=== PATIENT | male | born 1990 | race Caucasian/White ===

== ENCOUNTER 2017-01-22 23:47 | Observation (INO) | payer BC ==
[2017-01-23] MEDS ORDERED: Alum Hydrox/Mag Hydrox/Simeth 15 ML, Lidocaine 2% 5 ML PO ONE ×2 (00:14)
[2017-01-23] MEDS ORDERED: Pantoprazole 40 MG Vial IVPUSH ONE (00:15)
[2017-01-23] MEDS ORDERED: Nitroglycerin 2% Oint 1 GM UD Packet TOP ONE (00:16)
[2017-01-23] MEDS ORDERED: LORazepam 2 MG/ML MDV IVPUSH ONE (00:16)
[2017-01-23] MEDS ORDERED: Sucralfate Suspension 1 GM/10 ML Cup PO STA (00:17)
[2017-01-23] MEDS ORDERED: Acetaminophen 325 MG Tab PO PRN (00:18)
[2017-01-23] MEDS ORDERED: Sodium Chloride 0.9% 2.5 ML Syringe FLUSH PRN (00:18)
[2017-01-23] MEDS ORDERED: Sodium Chloride 0.9% 10 ML Syringe FLUSH PRN (00:18)
--- NOTE | 2017-01-23 00:22 | EDM.PDOC ---
ED HISTORY OF PRESENT ILLNESS - General Chief Complaint: Respiratory Problem Stated Complaint: PT HAS DIFFICULTY BREATHING Time Seen by Provider: 01/23/17 00:15 Source of Information: Reports: Patient, Family, RN - History of Present Illness INITIAL COMMENTS - FREE TEXT/NARRATIVE: He presents to the emergency department today complaining of chest pain. He states it's been present for about 2 weeks. It comes and goes. He states today has been present since 9 AM. The pain is associated with a feeling of dyspnea. He also has associated feeling of acid indigestion. - Related Data Allergies/ADRs: Allergies Allergy/AdvReac Type Severity Reaction Status Date / Time No Known Allergies Allergy Verified 01/22/17 23:51 Home Meds: Home Meds ClonazePAM [KlonoPIN] 0.5 tab PO DAILY 01/22/17 [History] Past Medical History HEENT History: Reports: None Cardiovascular History: Reports: None Respiratory History: Reports: None Gastrointestinal History: Reports: None Genitourinary History: Reports: None Musculoskeletal History: Reports: None Neurological History: Reports: None Psychiatric History: Reports: Anxiety Endocrine/Metabolic History: Reports: None Hematologic History: Reports: None Immunologic History: Reports: None Oncologic (Cancer) History: Reports: None Dermatologic History: Reports: None - Infectious Disease History Infectious Disease History: Reports: None - Past Surgical History Head Surgeries/Procedures: Reports: None HEENT Surgical History: Reports: None Social & Family History - Tobacco Use Smoking Status *Q: Never Smoker - Caffeine Use Caffeine Use: Reports: None - Recreational Drug Use Recreational Drug Use: No ED ROS GENERAL - Review of Systems Review Of Systems: See Below Constitutional: Denies: fever, chills Respiratory: Reports: shortness of breath. Denies: cough, sputum Cardiovascular: Reports: Chest pain GI/Abdominal: Denies: Abdominal pain : Denies: dysuria Free text/narrative/comment: He complains of anxiety. He states he has medicine at home to take for anxiety. ED EXAM, GENERAL - Physical Exam Exam: See Below Free Text/Narrative:: He is alert in no acute distress no chest wall tenderness no abnormal tenderness. Normal mentation. Lungs clear to auscultation. Heart regular rate and rhythm without murmur. No ankle edema. No lateralizing motor deficit noted. Electrocardiogram shows sinus rhythm with changes of early repolarization noted in V2 V3 V4 and V5. He is somewhat anxious in appearance. Course - Vital Signs Last Recorded V/S: Last Vital Signs Temp 97.1 F 01/22/17 23:51 Pulse 89 01/23/17 00:45 Resp 16 01/23/17 00:45 BP 112/70 01/23/17 00:45 Pulse Ox 98 01/23/17 00:45 - Orders/Labs/Meds Orders: Active Orders 24 hr Category Date Time Status Cardiac Monitoring [RC] . DIRECTED Care 01/23/17 00:16 Active EKG Documentation Completion [RC] STAT Care 01/23/17 23:56 Active Chest 2V [CR] Stat Exams 01/23/17 00:16 Taken CULTURE STREP A CONFIRMATION [] Stat Lab 01/23/17 00:45 Results STREP SCRN A RAPID W CULT CONF [] Stat Lab 01/23/17 00:45 Results Acetaminophen [Tylenol] Med 01/23/17 00:18 Active 650 mg PO Q4H PRN Nitroglycerin [Nitrostat] Med 01/23/17 00:30 Active 0.4 mg SL ONETIME Sodium Chloride 0.9% [Saline Flush] Med 01/23/17 00:18 Active 10 ml FLUSH ASDIRECTED PRN Sodium Chloride 0.9% [Saline Flush] Med 01/23/17 00:18 Active 2.5 ml FLUSH ASDIRECTED PRN Saline Lock Insert [OM.PC] Stat Oth 01/23/17 00:18 Ordered Medication Orders Acetaminophen (Tylenol) 650 mg PO Q4H PRN PRN Reason: Pain Last Admin: 01/23/17 00:32 Dose: 650 mg Nitroglycerin (Nitrostat) 0.4 mg SL ONETIME KAROL Last Admin: 01/23/17 00:32 Dose: 0.4 mg Sodium Chloride (Saline Flush) 10 ml FLUSH ASDIRECTED PRN PRN Reason: Keep Vein Open Last Admin: 01/23/17 00:46 Dose: 10 ml Sodium Chloride (Saline Flush) 2.5 ml FLUSH ASDIRECTED PRN PRN Reason: Keep Vein Open Last Admin: 01/23/17 00:43 Dose: 2.5 ml Labs: Laboratory Tests 01/23/17 01/23/17 01/23/17 Range/Units 00:20 00:20 00:20 WBC 7.57 (4.0-11.0) K/uL RBC 5.01 (4.50-5.90) M/uL Hgb 15.6 (13.0-17.0) g/dL Hct 45.7 (38.0-50.0) % MCV 91.2 (80.0-98.0) fL MCH 31.1 (27.0-32.0) pg MCHC 34.1 (31.0-37.0) g/dL RDW Std Deviation 43.8 (28.0-62.0) fl RDW Coeff of [place] 13 (11.0-15.0) % Plt Count 180 (150-400) K/uL MPV 10.40 (7.40-12.00) fL Neut % (Auto) 43.5 L (48.0-80.0) % Lymph % (Auto) 41.6 H (16.0-40.0) % [place] % (Auto) 10.8 (0.0-15.0) % Eos % (Auto) 3.6 (0.0-7.0) % Baso % (Auto) 0.5 (0.0-1.5) % Neut # 3.3 (1.4-5.7) K/uL Lymph # 3.2 H (0.6-2.4) K/uL [place] # 0.8 (0.0-0.8) K/uL Eos # 0.3 (0.0-0.7) K/uL Baso # 0.0 (0.0-0.1) K/uL Nucleated RBC % 0.0 /100WBC Nucleated RBCs # 0 K/uL D-Dimer, Quantitative 0.21 (0.0-0.52) mg/LFEU Sodium 139 (136-146) mmol/L Potassium 3.8 (3.5-5.1) mmol/L Chloride 104 (98-110) mmol/L Carbon Dioxide 28 (21-31) mmol/L BUN 18 (6.0-23.0) mg/dL Creatinine 1.1 (0.6-1.5) mg/dL Est Cr Clr Drug Dosing 103.23 mL/min Estimated GFR (MDRD) > 60.0 ml/min Glucose 89 (60-110) mg/dL Calcium 8.8 (8.8-10.8) mg/dL Total Bilirubin 0.5 (0.1-1.5) mg/dL AST 19 (5-40) IU/L ALT 12 (8-54) IU/L Alkaline Phosphatase 75 (40-150) Troponin I (0.0-0.29) NG/ML Total Protein 7.0 (6.0-8.0) g/dL Albumin 4.2 (3.5-5.0) g/dL Globulin 2.8 (2.0-3.5) g/dL Albumin/Globulin Ratio 1.5 (1.3-2.8) 01/23/17 Range/Units 00:20 WBC (4.0-11.0) K/uL RBC (4.50-5.90) M/uL Hgb (13.0-17.0) g/dL Hct (38.0-50.0) % MCV (80.0-98.0) fL MCH (27.0-32.0) pg MCHC (31.0-37.0) g/dL RDW Std Deviation (28.0-62.0) fl RDW Coeff of [place] (11.0-15.0) % Plt Count (150-400) K/uL MPV (7.40-12.00) fL Neut % (Auto) (48.0-80.0) % Lymph % (Auto) (16.0-40.0) % [place] % (Auto) (0.0-15.0) % Eos % (Auto) (0.0-7.0) % Baso % (Auto) (0.0-1.5) % Neut # (1.4-5.7) K/uL Lymph # (0.6-2.4) K/uL [place] # (0.0-0.8) K/uL Eos # (0.0-0.7) K/uL Baso # (0.0-0.1) K/uL Nucleated RBC % /100WBC Nucleated RBCs # K/uL D-Dimer, Quantitative (0.0-0.52) mg/LFEU Sodium (136-146) mmol/L Potassium (3.5-5.1) mmol/L Chloride (98-110) mmol/L Carbon Dioxide (21-31) mmol/L BUN (6.0-23.0) mg/dL Creatinine (0.6-1.5) mg/dL Est Cr Clr Drug Dosing mL/min Estimated GFR (MDRD) ml/min Glucose (60-110) mg/dL Calcium (8.8-10.8) mg/dL Total Bilirubin (0.1-1.5) mg/dL AST (5-40) IU/L ALT (8-54) IU/L Alkaline Phosphatase (40-150) Troponin I < 0.10 (0.0-0.29) NG/ML Total Protein (6.0-8.0) g/dL Albumin (3.5-5.0) g/dL Globulin (2.0-3.5) g/dL Albumin/Globulin Ratio (1.3-2.8) Meds: Medications Generic Name Dose Route Start Last Admin Trade Name Benq PRN Reason Stop Dose Admin Acetaminophen 650 mg 01/23/17 00:18 01/23/17 00:32 Tylenol PO 650 mg Q4H PRN Administration Pain Nitroglycerin 0.4 mg 01/23/17 00:30 01/23/17 00:32 Nitrostat SL 0.4 mg ONETIME KAROL Administration Sodium Chloride 10 ml 01/23/17 00:18 01/23/17 00:46 Saline Flush FLUSH 10 ml ASDIRECTED PRN Administration Keep Vein Open Sodium Chloride 2.5 ml 01/23/17 00:18 01/23/17 00:43 Saline Flush FLUSH 2.5 ml ASDIRECTED PRN Administration Keep Vein Open Discontinued Medications Generic Name Dose Route Start Last Admin Trade Name Crista PRN Reason Stop Dose Admin Al Hydroxide/Mg Hydroxide 15 0 ml 01/23/17 00:14 01/23/17 00:35 ml/ Lidocaine HCl 5 ml PO 01/23/17 00:15 15 each ONETIME ONE Administration Lorazepam 1 mg 01/23/17 00:16 01/23/17 00:37 Ativan IVPUSH 01/23/17 00:17 1 mg ONETIME ONE Administration Nitroglycerin 1 gm 01/23/17 00:16 01/23/17 00:39 Nitro-Bid 2% TOP 01/23/17 00:17 1 gm ONETIME ONE Administration Pantoprazole Sodium 40 mg 01/23/17 00:15 01/23/17 00:33 Protonix Iv IVPUSH 01/23/17 00:16 40 mg .BOLUS ONE Administration Sucralfate 1 gm 01/23/17 00:17 Carafate PO 01/23/17 00:18 NOW STA - Re-Assessments/Exams Free Text/Narrative Re-Assessment/Exam: 01/23/17 01:41 He seems to feel better after emergency room treatment. I discussed in hospital observation for further cardiac evaluation. I advised that I think the most likely etiology of his chest pain is related to anxiety and acid reflux disease. Departure - Departure Time of Disposition: 01:42 Disposition: Refer to Observation Condition: good Clinical Impression: Chest pain, Anxiety, GERD (gastroesophageal reflux disease) Referrals: PCP,None [Primary Care Provider] - Forms: ED Department Discharge Additional Instructions: Will admit to observation - My Orders Last 24 Hours: My Active Orders 01/23/17 00:16 Cardiac Monitoring [RC] . DIRECTED Chest 2V [CR] Stat 01/23/17 00:18 Acetaminophen [Tylenol] 650 mg PO Q4H PRN Sodium Chloride 0.9% [Saline Flush] 10 ml FLUSH ASDIRECTED PRN Sodium Chloride 0.9% [Saline Flush] 2.5 ml FLUSH ASDIRECTED PRN Saline Lock Insert [OM.PC] Stat 01/23/17 00:30 Nitroglycerin [Nitrostat] 0.4 mg SL ONETIME 01/23/17 00:45 CULTURE STREP A CONFIRMATION [RM] Stat STREP SCRN A RAPID W CULT CONF [RM] Stat 01/23/17 23:56 EKG Documentation Completion [RC] STAT - Assessment/Plan Last 24 Hours: My Active Orders 01/23/17 00:16 Cardiac Monitoring [RC] . DIRECTED Chest 2V [CR] Stat 01/23/17 00:18 Acetaminophen [Tylenol] 650 mg PO Q4H PRN Sodium Chloride 0.9% [Saline Flush] 10 ml FLUSH ASDIRECTED PRN Sodium Chloride 0.9% [Saline Flush] 2.5 ml FLUSH ASDIRECTED PRN Saline Lock Insert [OM.PC] Stat 01/23/17 00:30 Nitroglycerin [Nitrostat] 0.4 mg SL ONETIME 01/23/17 00:45 CULTURE STREP A CONFIRMATION [RM] Stat STREP SCRN A RAPID W CULT CONF [RM] Stat 01/23/17 23:56 EKG Documentation Completion [RC] STAT
[2017-01-23] MEDS ORDERED: Nitroglycerin 0.4 MG Tab.SL SL SCH (00:30)
[2017-01-23 00:57] LABS: CHLORIDE,CL 104 mmol/L (98-110); SODIUM,NA 139 mmol/L (136-146)
[2017-01-23] MEDS ORDERED: Bisacodyl 5 MG Tab PO PRN (01:44)
[2017-01-23] MEDS ORDERED: Ondansetron 4 MG Tab.DIS PO PRN (01:44)
[2017-01-23] MEDS ORDERED: Temazepam 15 MG Cap PO PRN (01:44)
[2017-01-23] MEDS ORDERED: Morphine 10 MG/ML Syringe IVPUSH PRN (01:44)
[2017-01-23] MEDS ORDERED: Nitroglycerin 2% Oint 1 GM UD Packet TOP SCH ×2 (01:45→06:00)
[2017-01-23] MEDS ORDERED: LORazepam 1 MG Tab PO PRN (01:48)
[2017-01-23] MEDS ORDERED: Aspirin 81 MG Tab.Chew PO ONE (01:50)
[2017-01-23] MEDS: Sucralfate Suspension 1 GM/10 ML Cup PO SCH ×4 (02:28→12:04)
[2017-01-23] MEDS ORDERED: Flu Vaccine 2016-17(36Mos+)/PF 60 MCG/0.5 ML Syringe IM ONE (02:58)
[2017-01-23] MEDS ORDERED: Pantoprazole 40 MG Tab.CR PO SCH (07:30)
[2017-01-23] MEDS ORDERED: Aspirin 81 MG Tab.Chew PO SCH (09:00)
--- NOTE | 2017-01-23 09:07 | PCM.HP ---
Addendum entered and electronically signed by Blanca Uriarte MD 01/23/17 12:22 : Discussed with Dr. Payton. He is low risk for ACS and he does not require asa or nitrostat. Addendum entered and electronically signed by Blanca Uriarte MD 01/23/17 12:04 : DISCHARGE SUMMARY patient was ruled our ACS. He does not have chest pain. He is to follow up with Dr. Delaney in cardiology and Dr. Uriarte at the clinic. He is discharged on ASA, protonix, nitrostat and paxil for anxiety. Original Note: <Blanca Uriarte - Last Filed: 01/23/17 10:32> H&P History of Present Illness - General Date of Service: 01/23/17 - History of Present Illness Initial Comments - Free Text/Narative: 26 yo male with intermittent chest pain x 3 weeks. He describes the pain as pressure often worsenend by food. Last night the chest pain woke him from sleep where he felt pressure like sensation with nausea, sweating and palpitations. His drove him to the ED. He does have severe anxiety where he has been taking Klonapin 2 mg for ten years. He does not have history of HTN, DM, Hyperlipidemia or CHF. He does have history of GERD occasionally where he does not take any medications. He used to smoke but had quit, drink alchol or use recreational drugs. He works in the [employer] field. Chest Pain Score (Numeric/FACES): 6 Headache Pain Score (Numeric/FACES): 6 - Related Data Allergies/Adverse Reactions: Allergies Allergy/AdvReac Type Severity Reaction Status Date / Time No Known Allergies Allergy Verified 01/22/17 23:51 Home Medications: Home Meds ClonazePAM [KlonoPIN] 0.25 tab PO DAILY 01/22/17 [History] PARoxetine [Paxil] 20 mg PO DAILY #30 tablet 01/23/17 [Rx] Pantoprazole [Protonix] 40 mg PO ACBREAKFAST #30 tab.cr 01/23/17 [Rx] clonazePAM [Klonopin] 0.5 mg PO PCDINNER 01/23/17 [History] Past Medical History HEENT History: Reports: None Cardiovascular History: Reports: None Respiratory History: Reports: None Gastrointestinal History: Reports: None Genitourinary History: Reports: None Musculoskeletal History: Reports: None Neurological History: Reports: None Psychiatric History: Reports: Anxiety Endocrine/Metabolic History: Reports: None Hematologic History: Reports: None Immunologic History: Reports: None Oncologic (Cancer) History: Reports: None Dermatologic History: Reports: None - Infectious Disease History Infectious Disease History: Reports: Chicken pox - Past Surgical History Head Surgeries/Procedures: Reports: None HEENT Surgical History: Reports: None Social & Family History - Family History Family Medical History: Noncontributory - Tobacco Use Smoking Status *Q: Former Smoker Years of Tobacco use: 1 Tobacco Use Comment: quit smoking 8-9 years ago Second Hand Smoke Exposure: No - Caffeine Use Caffeine Use: Reports: None - Recreational Drug Use Recreational Drug Use: Yes Recreational Drug Type: Reports: Marijuana/Hashish H&P Review of Systems - Review of Systems: Review Of Systems: See Below General: Reports: no symptoms HEENT: Reports: no symptoms Pulmonary: Reports: no symptoms Cardiovascular: Reports: no symptoms Gastrointestinal: Reports: No symptoms Genitourinary: Reports: no symptoms Musculoskeletal: Reports: no symptoms Skin: Reports: no symptoms Psychiatric: Reports: no symptoms Neurological: Reports: no symptoms Hematologic/Lymphatic: Reports: no symptoms Immunologic: Reports: no symptoms Exam - Exam Exam: See Below - Vital Signs Vital Signs: Last Vital Signs Temp 98.1 F 01/23/17 08:39 Pulse 81 01/23/17 08:39 Resp 16 01/23/17 08:39 BP 119/69 01/23/17 08:39 Pulse Ox 98 01/23/17 08:39 Weight: 207 lb - Exam General: alert, oriented HEENT: EOMI Neck: supple, trachea midline Lungs: Clear to auscultation, Normal respiratory effort Cardiovascular: regular rate, regular rhythm Abdomen: normal bowel sounds, soft Back Exam: normal inspection Extremities: normal inspection Skin: warm, dry, intact Neurological: cranial nerves intact Neuro Extensive - Mental Status: alert, oriented x3, normal mood/affect - Patient Data Lab Results last 24 hrs: Laboratory Results - last 24 hr 01/23/17 01/23/17 Range/Units 04:56 04:56 Magnesium 2.2 (1.5-2.3) mEq/L Troponin I < 0.10 (0.0-0.29) NG/ML Result Diagrams: 01/23/17 00:20 01/23/17 00:20 *Q Meaningful Use (ADM) - VTE *Q VTE Criteria *Q: - Stroke *Q Stroke Criteria *Q: - AMI *Q AMI Criteria *Q: Problem List Initiated/Reviewed/Updated: Yes Orders Last 24hrs: Active Orders 24 hr Category Date Time Status Telemetry Monitoring [Cardiac Monitoring] [RC] Q8H Care 01/23/17 02:00 Active GLYCOSYLATED HEMOGLOBIN,HGBA1C [CHEM] Routine Lab 01/23/17 08:54 Ordered LIPID PANEL [CHEM] Routine Lab 01/23/17 08:54 Ordered Sucralfate [Carafate] Med 01/23/17 07:30 Active 1 gm PO QIDACANDBED Medication Orders Acetaminophen (Tylenol) 650 mg PO Q4H PRN PRN Reason: Pain Last Admin: 01/23/17 00:32 Dose: 650 mg Aspirin (Aspirin) 81 mg PO DAILY [facility] Last Admin: 01/23/17 08:05 Dose: 81 mg Bisacodyl (Dulcolax) 5 mg PO DAILY PRN PRN Reason: Constipation Enoxaparin Sodium (Lovenox) 40 mg SUBCUT DAILY [facility] Lorazepam (Ativan) 1 mg PO Q6H PRN PRN Reason: Anxiety Morphine Sulfate (Morphine) 2 mg IVPUSH Q2H PRN PRN Reason: Pain (severe 7-10) Nitroglycerin (Nitrostat) 0.4 mg SL ONETIME [facility] Last Admin: 01/23/17 00:32 Dose: 0.4 mg Ondansetron HCl (Zofran Odt) 4 mg PO Q4H PRN PRN Reason: nausea, able to take PO Pantoprazole Sodium (Protonix) 40 mg PO ACBREAKFAST [facility] Last Admin: 01/23/17 07:16 Dose: 40 mg Sodium Chloride (Saline Flush) 10 ml FLUSH ASDIRECTED PRN PRN Reason: Keep Vein Open Last Admin: 01/23/17 00:46 Dose: 10 ml Sodium Chloride (Saline Flush) 2.5 ml FLUSH ASDIRECTED PRN PRN Reason: Keep Vein Open Last Admin: 01/23/17 00:43 Dose: 2.5 ml Sucralfate (Carafate) 1 gm PO QIDACANDBED [facility] Last Admin: 01/23/17 07:55 Dose: 1 gm Temazepam (Restoril) 15 mg PO BEDTIME PRN PRN Reason: Sleep Assessment/Plan Comment:: Chest Pain r/o ACS Troponin x 2 negative. Check lipid profile: HDL 22 other values unremarkable HBA1C 5.6 Discharge if tropinin x 3 negative. follow up with cardiology and Dr. Uriarte in the clinic <Lyndsay Payton - Last Filed: 01/23/17 13:54> Exam - Vital Signs Vital Signs: Last Vital Signs Temp 98.1 F 01/23/17 08:39 Pulse 81 01/23/17 08:39 Resp 16 01/23/17 08:39 BP 119/69 01/23/17 08:39 Pulse Ox 98 01/23/17 08:39 - Patient Data Lab Results last 24 hrs: Laboratory Results - last 24 hr 01/23/17 01/23/17 01/23/17 Range/Units 04:56 04:56 04:56 Hemoglobin A1c (0.0-6.0) % Magnesium 2.2 (1.5-2.3) mEq/L Troponin I < 0.10 (0.0-0.29) NG/ML Triglycerides 129 (10-190) mg/dL Cholesterol 136 (131-240) mg/dL LDL Cholesterol, Calc 88 (60-180) mg/dL VLDL Cholesterol 26 (5-55) mg/dL HDL Cholesterol 22 L (40-80) mg/dL Cholesterol/HDL Ratio 6.2 H (3.3-6.0) 01/23/17 01/23/17 Range/Units 04:56 11:20 Hemoglobin A1c 5.6 (0.0-6.0) % Magnesium (1.5-2.3) mEq/L Troponin I < 0.10 (0.0-0.29) NG/ML Triglycerides (10-190) mg/dL Cholesterol (131-240) mg/dL LDL Cholesterol, Calc (60-180) mg/dL VLDL Cholesterol (5-55) mg/dL HDL Cholesterol (40-80) mg/dL Cholesterol/HDL Ratio (3.3-6.0) Result Diagrams: 01/23/17 00:20 01/23/17 00:20 *Q Meaningful Use (ADM) - VTE *Q VTE Criteria *Q: - Stroke *Q Stroke Criteria *Q: - AMI *Q AMI Criteria *Q: Orders Last 24hrs: Active Orders 24 hr Category Date Time Status Ready for Discharge [RC] PER UNIT ROUTINE Care 01/23/17 12:02 Active Telemetry Monitoring [Cardiac Monitoring] [RC] Q8H Care 01/23/17 02:00 Active ClonazePAM [KlonoPIN] Med 01/23/17 09:17 Active 0.25 mg PO DAILY PRN ClonazePAM [KlonoPIN] Med 01/23/17 09:17 Active 0.5 mg PO PCDINNER PRN PARoxetine [Paxil] Med 01/23/17 09:30 Active 20 mg PO DAILY Sucralfate [Carafate] Med 01/23/17 07:30 Active 1 gm PO QIDACANDBED Medication Orders Acetaminophen (Tylenol) 650 mg PO Q4H PRN PRN Reason: Pain Last Admin: 01/23/17 00:32 Dose: 650 mg Aspirin (Aspirin) 81 mg PO DAILY [facility] Last Admin: 01/23/17 08:05 Dose: 81 mg Bisacodyl (Dulcolax) 5 mg PO DAILY PRN PRN Reason: Constipation Clonazepam (Klonopin) 0.25 mg PO DAILY PRN PRN Reason: Anxiety Clonazepam (Klonopin) 0.5 mg PO PCDINNER PRN PRN Reason: Anxiety Enoxaparin Sodium (Lovenox) 40 mg SUBCUT DAILY [facility] Lorazepam (Ativan) 1 mg PO Q6H PRN PRN Reason: Anxiety Morphine Sulfate (Morphine) 2 mg IVPUSH Q2H PRN PRN Reason: Pain (severe 7-10) Nitroglycerin (Nitrostat) 0.4 mg SL ONETIME [facility] Last Admin: 01/23/17 00:32 Dose: 0.4 mg Ondansetron HCl (Zofran Odt) 4 mg PO Q4H PRN PRN Reason: nausea, able to take PO Pantoprazole Sodium (Protonix) 40 mg PO ACBREAKFAST [facility] Last Admin: 01/23/17 07:16 Dose: 40 mg Paroxetine HCl (Paxil) 20 mg PO DAILY [facility] Last Admin: 01/23/17 09:59 Dose: 20 mg Sodium Chloride (Saline Flush) 10 ml FLUSH ASDIRECTED PRN PRN Reason: Keep Vein Open Last Admin: 01/23/17 00:46 Dose: 10 ml Sodium Chloride (Saline Flush) 2.5 ml FLUSH ASDIRECTED PRN PRN Reason: Keep Vein Open Last Admin: 01/23/17 00:43 Dose: 2.5 ml Sucralfate (Carafate) 1 gm PO QIDACANDBED KAROL Last Admin: 01/23/17 12:04 Dose: 1 gm Admin: 01/23/17 07:55 Dose: 1 gm Temazepam (Restoril) 15 mg PO BEDTIME PRN PRN Reason: Sleep Assessment/Plan Comment:: Patient seen and examined . He has chest pain , atypical , worse with breathing , no chest pain with exercising . admission and discharge discussed with resident Agree with the admission and discharge with the following recommendation . DW resident. No need for aspirin , protonix , nitrostat at home . Patient advised to use medication for pain such as tylenol , ibuprofen.
[2017-01-23] MEDS ORDERED: ClonazePAM 0.5 MG Tab PO PRN ×2 (09:17)
[2017-01-23] MEDS ORDERED: PARoxetine 20 MG Tab PO SCH (09:30)
[2017-01-23 14:50] VITALS: BP 110/65
--- NOTE | 2017-01-23 15:13 | CR ---
EXAM DATE: 01/23/17 PATIENT'S AGE: 26 Patient: GENIE MATT Facility: [place], [place] Site . Site : [id number] Study: XRay Chest [id number] 1:27:52 AM Ordering Physician: Doctor Beatty Final Report: INDICATION: chest pain TECHNIQUE: Chest 2 views. COMPARISON: None. FINDINGS: Cardiovascular and mediastinum: Heart size and vasculature are normal in caliber and appearance. Mediastinum is within normal limits. Lungs and pleural spaces: Lungs are clear. No sign of infiltrate or mass. No sign of pleural effusion. No pneumothorax. Bones and soft tissues: No significant findings. IMPRESSION: Unremarkable chest. Dictated by: Reno Hoffmann MD @ 01/23/2017 01:38:14 (Electronic Signature) Report Signed by Proxy and Original Signed Document filed in the Medical Record. MTDD
[2017-01-24] MEDS ORDERED: Enoxaparin 40 MG/0.4 ML Syringe SUBCUT SCH (16:00)
== END 2017-01-23 13:15 | disposition home or self-care (01) ==
LOC: MW.ED 23:47 → MW.MS 01-23 02:00
PROVIDERS: ADMIT Family Medicine; ATTEND Family Medicine
DX: R07.9 Chest pain, unspecified (principal); Z79.899 Other long term (current) drug therapy
CPT/HCPCS: 36415; 71020; 80053; 80061; 83036; 83735; 84484; 85025; 85379; 87081; 87880; 93005; 96374; 96375; 99285; A9270; C9113; J2060; 90686; 99284; G0008; G0378

== ENCOUNTER 2018-04-14 09:44 | Emergency (ER) | payer BC ==
--- NOTE | 2018-04-14 10:11 | EDM.PDOC ---
ED HPI GENERAL MEDICAL PROBLEM - General Chief Complaint: Lower Extremity Injury/Pain Stated Complaint: RT FOOT PAIN Time Seen by Provider: 04/14/18 10:06 Source of Information: Reports: Patient History Limitations: Reports: No Limitations - History of Present Illness INITIAL COMMENTS - FREE TEXT/NARRATIVE: HISTORY AND PHYSICAL: []28-year-old male presenting with injury to the dorsum of his right foot History of Present Illness: []Patient was at work this morning was carrying a ladder and somehow landed on his foot/abrasion noted to the right thigh Review of Systems: As per history of present illness and below otherwise all systems reviewed and negative. Past medical history: As per history of present illness and as reviewed below otherwise noncontributory. Surgical history: As per history of present illness and as reviewed below otherwise noncontributory. Social history: No reported history of drug or alcohol abuse. Family history: As per history of present illness and as reviewed below otherwise noncontributory. Physical exam: Alert pleasant gentleman who is answering questions appropriately in full sentences without any shortness of breath HEENT: Atraumatic, normocehpalic, pupils reactive, negative for conjunctival pallor or scleral icterus, mucous membranes moist, throat clear, neck supple, nontender, trachea midline. Lungs: Clear to auscultation, breath sounds equal bilaterally, chest non tender. Heart: S1S2, regular, negative for clicks, rubs, or JVD. Abdomen: Soft, nondistended, nontender. Negative for masses or hepatossplenmegaly. Negative for costovertebral tenderness. Pelvis: Stable nontender. Genitourinary: Deferred. Rectal: Deferred Extremities: There is some ecchymosis and erythema to the dorsum of the right foot pulses are intact sensation is intact he does have full range of motion, increased pain when there is movement. negative for cords or calf pain. Neurovascular unremarkable. Neuro: Awake, alert, oriented. Cranial nerves II through XII unremarkable. Cerebellum unremarkable. Motor and sensory unremarkable throughout. Exam nonfocal. Discussed the negative results with the patient no fracture or dislocation noted is contusion and bruising present Diagnostics: []x-ray rt foot Therapeutics: []ice Impression: []contusion to right foot Plan: []Discharged to home Ibuprofen for discomfort Definitive disposition and diagnosis as appropriate pending reevaluation and review of above. Onset: Today, Sudden Duration: Hour(s):, Getting Worse Location: Reports: Lower Extremity, Right Quality: Reports: Throbbing Severity: Moderate Improves with: Reports: None Worsens with: Reports: None right foot Pain Score (Numeric/FACES): 9 - Related Data Allergies Allergy/AdvReac Type Severity Reaction Status Date / Time No Known Allergies Allergy Verified 04/14/18 09:54 Home Meds: Home Meds Pantoprazole [ProTONIX] 40 mg PO ACBREAKFAST #30 tab.cr 01/23/17 [Rx] clonazePAM [Klonopin] 1 mg PO DAILY 01/23/17 [History] Past Medical History HEENT History: Reports: None Cardiovascular History: Reports: None Respiratory History: Reports: None Gastrointestinal History: Reports: None Genitourinary History: Reports: None Musculoskeletal History: Reports: None Neurological History: Reports: None Psychiatric History: Reports: Depression Endocrine/Metabolic History: Reports: None Hematologic History: Reports: None Immunologic History: Reports: None Oncologic (Cancer) History: Reports: None Dermatologic History: Reports: None - Infectious Disease History Infectious Disease History: Reports: Chicken Pox - Past Surgical History Head Surgeries/Procedures: Reports: None HEENT Surgical History: Reports: None Social & Family History - Family History Family Medical History: Noncontributory - Tobacco Use Smoking Status *Q: Never Smoker Second Hand Smoke Exposure: No - Caffeine Use Caffeine Use: Reports: None - Recreational Drug Use Recreational Drug Use: No Review of Systems - Review of Systems Review Of Systems: ROS reveals no pertinent complaints other than HPI. ED EXAM, GENERAL - Physical Exam Exam: See Below (The dictation) Course - Vital Signs Last Recorded V/S: Last Vital Signs Temp 36.9 C 04/14/18 09:52 Pulse 73 04/14/18 09:52 Resp 16 04/14/18 09:52 BP 135/82 04/14/18 09:52 Pulse Ox 97 04/14/18 09:52 Departure - Departure Time of Disposition: 10:55 Disposition: Home, Self-Care 01 Condition: Good Clinical Impression: Contusion of right foot Qualifiers: Encounter type: initial encounter Qualified Code(s): S90.31XA - Contusion of right foot, initial encounter - Discharge Information Instructions: Foot Contusion Referrals: PCP,None [Primary Care Provider] - Forms: ED Department Discharge Additional Instructions: The following information is given to patients seen in the emergency department who are being discharged to home. This information is to outline your options for follow-up care. We provide all patients seen in our emergency department with a follow-up referral. The need for follow-up, as well as the timing and circumstances, are variable depending upon the specifics of your emergency department visit. If you don't have a primary care physician on staff, we will provide you with a referral. We always advise you to contact your personal physician following an emergency department visit to inform them of the circumstance of the visit and for follow-up with them and/or the need for any referrals to a consulting specialist. The emergency department will also refer you to a specialist when appropriate. This referral assures that you have the opportunity for followup care with a specialist. All of these measure are taken in an effort to provide you with optimal care, which includes your followup. Under all circumstances we always encourage you to contact your private physician who remains a resource for coordinating your care. When calling for followup care, please make the office aware that this follow-up is from your recent emergency room visit. If for any reason you are refused follow-up, please contact the [facility] emergency department at and asked to speak to the emergency department charge nurse. You have a bruise to your foot no fractures or dislocations were noted on x-ray Ibuprofen for discomfort Follow-up with your primary care provider Return to the emergency room as directed and discussed
--- NOTE | 2018-04-14 10:37 | CR ---
EXAMINATION: Right foot HISTORY: Pain COMPARISON: None TECHNIQUE: 2 views FINDINGS/IMPRESSION: There is no acute osseous abnormality, dislocation, or fracture. Bone mineraliza tion and joint spaces appear normal. Moderate soft tissue swelling overlying the dorsal aspect of the forefoot.
[2018-04-14 11:32] VITALS: BP 126/77
== END 2018-04-14 11:09 | disposition home or self-care (01) ==
LOC: MW.ED 09:44
DX: S90.31XA Contusion of right foot, initial encounter (principal); S70.311A Abrasion, right thigh, initial encounter; Y99.0 Civilian activity done for income or pay; X50.0XXA Overexertion from strenuous movement or load, initial encounter; Z79.899 Other long term (current) drug therapy
CPT/HCPCS: 73620-26-RT; 73620-RT; 99283

== ENCOUNTER 2019-02-13 06:23 | Emergency (ER) | payer BC ==
--- NOTE | 2019-02-13 06:49 | CR ---
INDICATION: Chest pain COMPARISON: Two view chest dated 01/23/2017 TECHNIQUE: AP erect chest performed at 6:25 a.m. FINDINGS: The lungs are clear. There is no evidence of pneumothorax. The heart, mediastinum and pulmonary vessels are of normal size. There is no evidence of pleural fluid. IMPRESSION: Negative chest. Dictated by Surendra Meier MD @ Feb 13 2019 6:46AM Signed by Dr. Surendra Meier @ Feb 13 2019 6:47AM
--- NOTE | 2019-02-13 07:08 | EDM.PDOC ---
ED HPI GENERAL MEDICAL PROBLEM - General Chief Complaint: Chest Pain Stated Complaint: CHEST PAIN Time Seen by Provider: 02/13/19 07:06 - History of Present Illness INITIAL COMMENTS - FREE TEXT/NARRATIVE: HISTORY AND PHYSICAL: History of present illness: Patient's a 28-year-old male history of anxiety presents with concerns of chest pain is vaguely described without associated shortness breath palpitations diaphoresis nausea or vomiting he denies trauma is been no fever chills Review of systems: As per history of present illness and below otherwise all systems reviewed and negative. Past medical history: As per history of present illness and as reviewed below otherwise noncontributory. Surgical history: As per history of present illness and as reviewed below otherwise noncontributory. Social history: No reported history of drug or alcohol abuse. Family history: As per history of present illness and as reviewed below otherwise noncontributory. Physical exam: HEENT: Atraumatic, normocephalic, pupils reactive, negative for conjunctival pallor or scleral icterus, mucous membranes moist, throat clear, neck supple, nontender, trachea midline. Lungs: Clear to auscultation, breath sounds equal bilaterally, chest nontender. Heart: S1S2, regular, negative for clicks, rubs, or JVD. Abdomen: Soft, nondistended, nontender. Negative for masses or hepatosplenomegaly. Negative for costovertebral tenderness. Pelvis: Stable nontender. Genitourinary: Deferred. Rectal: Deferred. Extremities: Atraumatic, negative for cords or calf pain. Neurovascular unremarkable. Neuro: Awake, alert, oriented. Cranial nerves II through XII unremarkable. Cerebellum unremarkable. Motor and sensory unremarkable throughout. Exam nonfocal. Diagnostics: Chest x-ray EKG Therapeutics: None Impression: #1 atypical chest pain # 2 history of anxiety Definitive disposition and diagnosis as appropriate pending reevaluation and review of above. chest Pain Score (Numeric/FACES): 7 - Related Data Allergies Allergy/AdvReac Type Severity Reaction Status Date / Time No Known Allergies Allergy Verified 04/14/18 09:54 Home Meds: Home Meds Pantoprazole [ProTONIX] 40 mg PO ACBREAKFAST #30 tab.cr 01/23/17 [Rx] clonazePAM [Klonopin] 1 mg PO DAILY 01/23/17 [History] Past Medical History HEENT History: Reports: None Cardiovascular History: Reports: None Respiratory History: Reports: None Gastrointestinal History: Reports: GERD Genitourinary History: Reports: None Musculoskeletal History: Reports: None Neurological History: Reports: None Psychiatric History: Reports: Anxiety, Depression Endocrine/Metabolic History: Reports: None Hematologic History: Reports: None Immunologic History: Reports: None Oncologic (Cancer) History: Reports: None Dermatologic History: Reports: None - Infectious Disease History Infectious Disease History: Reports: Chicken Pox - Past Surgical History Head Surgeries/Procedures: Reports: None HEENT Surgical History: Reports: Naso-Sinus Surgery Social & Family History - Family History Family Medical History: Noncontributory - Tobacco Use Smoking Status *Q: Never Smoker - Caffeine Use Caffeine Use: Reports: None - Recreational Drug Use Recreational Drug Use: No ED ROS GENERAL - Review of Systems Review Of Systems: ROS reveals no pertinent complaints other than HPI. ED EXAM, GENERAL - Physical Exam Exam: See Below (See dictation) Course - Vital Signs Last Recorded V/S: Last Vital Signs Temp 36.2 C 02/13/19 06:23 Pulse 84 02/13/19 06:23 Resp 18 02/13/19 06:23 BP 131/82 02/13/19 06:23 Pulse Ox 97 02/13/19 06:23 - Orders/Labs/Meds Orders: Active Orders 24 hr Category Date Time Status EKG Documentation Completion [RC] STAT Care 02/13/19 06:34 Active Departure - Departure Time of Disposition: 07:08 Disposition: Home, Self-Care 01 Condition: Good Clinical Impression: Atypical chest pain - Discharge Information Referrals: Peter Birch MD [Primary Care Provider] - Additional Instructions: The following information is given to patients seen in the emergency department who are being discharged to home. This information is to outline your options for follow-up care. We provide all patients seen in our emergency department with a follow-up referral. The need for follow-up, as well as the timing and circumstances, are variable depending upon the specifics of your emergency department visit. If you don't have a primary care physician on staff, we will provide you with a referral. We always advise you to contact your personal physician following an emergency department visit to inform them of the circumstance of the visit and for follow-up with them and/or the need for any referrals to a consulting specialist. The emergency department will also refer you to a specialist when appropriate. This referral assures that you have the opportunity for followup care with a specialist. All of these measure are taken in an effort to provide you with optimal care, which includes your followup. Under all circumstances we always encourage you to contact your private physician who remains a resource for coordinating your care. When calling for followup care, please make the office aware that this follow-up is from your recent emergency room visit. If for any reason you are refused follow-up, please contact the [facility] emergency department at and asked to speak to the emergency department charge nurse. Follow-up primary medical doctor return as needed as discussed - My Orders Last 24 Hours: My Active Orders 02/13/19 06:34 EKG Documentation Completion [RC] STAT - Assessment/Plan Last 24 Hours: My Active Orders 02/13/19 06:34 EKG Documentation Completion [RC] STAT
[2019-02-13 07:23] VITALS: BP 133/94
== END 2019-02-13 07:19 | disposition home or self-care (01) ==
LOC: MW.ED 06:23
DX: R07.89 Other chest pain (principal); F41.9 Anxiety disorder, unspecified; Z79.899 Other long term (current) drug therapy
CPT/HCPCS: 71045; 71045-26; 93005; 99282; 99285-25

== ENCOUNTER 2019-09-07 12:59 | Emergency (ER) | payer BC, OTHER ==
[2019-09-07] MEDS ORDERED: Ondansetron 4 MG/2 ML SDV IVPUSH ONE (13:09)
[2019-09-07] MEDS ORDERED: Metoclopramide 10 MG/2 ML SDV IV ONE (13:09)
[2019-09-07] MEDS ORDERED: Sodium Chloride 0.9% 1,000 ML IV ONE (13:09)
[2019-09-07] MEDS ORDERED: diphenhydrAMINE 50 MG/ML SDV IVPUSH ONE (13:09)
[2019-09-07] MEDS ORDERED: Ketorolac 30 MG/ML SDV IVPUSH ONE (13:09)
--- NOTE | 2019-09-07 13:12 | EDM.PDOC ---
ED HPI GENERAL MEDICAL PROBLEM - General Chief Complaint: General Stated Complaint: HEADACHE, DIZZY Time Seen by Provider: 09/07/19 12:59 Source of Information: Reports: Patient History Limitations: Reports: No Limitations - History of Present Illness INITIAL COMMENTS - FREE TEXT/NARRATIVE: HISTORY AND PHYSICAL: History of present illness: Patient is a 29-year-old male presenting to the emergency room with his for chief complaint of headache. Patient states that he has had a headache intermittently for approximately 3 weeks, however darted again today and has been "getting worse". Patient states headache is "right behind my right eye", rating it at a 9/10. He does have photophobia, dizziness, nauseousness and subjective chills. Patient states he took 250 mg of ibuprofen approximately one hour ago, however this has not alleviated his headache. Right aggravates the pain. Patient denies history of migraines. Patient denies any fever, change in vision, syncope or near syncope. Denies any chest pain, back pain, shortness of breath or cough. Denies any abdominal pain, nausea, vomiting, diarrhea, constipation or dysuria. Has not noted any blood in urine or stool. Patient has been eating and drinking appropriately. Review of systems: As per history of present illness and below otherwise all systems reviewed and negative. Past medical history: As per history of present illness and as reviewed below otherwise noncontributory. Surgical history: As per history of present illness and as reviewed below otherwise noncontributory. Social history: See social history for further information Family history: As per history of present illness and as reviewed below otherwise noncontributory. Physical exam: General: Patient is a well-nourished and well-developed 29-year-old male. Alert and orientated. Nontoxic in appearance and in no acute distress. Vital signs have been reviewed by me. HEENT: Atraumatic, normocephalic, pupils equal and reactive bilaterally, negative for conjunctival pallor or scleral icterus, mucous membranes moist, TMs normal bilaterally, throat clear, neck supple, nontender, trachea midline. No drooling or trismus noted. No meningeal signs. No hot potato voice noted. Lungs: Clear to auscultation, breath sounds equal bilaterally, chest nontender. Heart: S1S2, regular rate and rhythm without overt murmur Abdomen: Soft, nondistended, nontender. Negative for masses or hepatosplenomegaly. Negative for costovertebral tenderness. Skin: Intact, warm, dry. No lesions or rashes noted. Extremities: Atraumatic, moves all extremities per self without difficulty or deficits, negative for cords or calf pain. Neurovascular unremarkable. Neuro: Awake, alert, oriented. Cranial nerves II through XII unremarkable. Cerebellum unremarkable. Motor and sensory unremarkable throughout. Exam nonfocal. Notes: Head CT shows an incidental finding of a right ethmoid retention cyst. Otherwise remaining head CT is unremarkable. Lab work shows no acute findings. Patient does feel improvement, "pretty much gone", after IV fluids and medications. Supportive care measures were reviewed and discussed. Voices understanding and is agreeable to plan of care. Denies any further questions or concerns at this time. Diagnostics: Head CT, CBC, CMP, EKG Therapeutics: IV fluid, Zofran, Reglan, Toradol Prescription: None Impression: Headache Plan: 1. Please use Tylenol and/or Ibuprofen as needed for pain and fever management. 2. Get plenty of Rest. Encourage fluids to prevent dehydration. 3. Please follow up with your primary care provider. Return to the ED as needed as discussed. Definitive disposition and diagnosis as appropriate pending reevaluation and review of above. headache Pain Score (Numeric/FACES): 8 - Related Data Allergies Allergy/AdvReac Type Severity Reaction Status Date / Time No Known Allergies Allergy Verified 04/14/18 09:54 Home Meds: Home Meds Pantoprazole [ProTONIX] 40 mg PO ACBREAKFAST #30 tab.cr 01/23/17 [Rx] clonazePAM [Klonopin] 1 mg PO DAILY 01/23/17 [History] Escitalopram Oxalate 20 mg PO DAILY 09/07/19 [History] Past Medical History HEENT History: Reports: None Cardiovascular History: Reports: None Respiratory History: Reports: None Gastrointestinal History: Reports: GERD Genitourinary History: Reports: None Musculoskeletal History: Reports: None Neurological History: Reports: None Psychiatric History: Reports: Anxiety, Depression Endocrine/Metabolic History: Reports: None Hematologic History: Reports: None Immunologic History: Reports: None Oncologic (Cancer) History: Reports: None Dermatologic History: Reports: None - Infectious Disease History Infectious Disease History: Reports: None - Past Surgical History Head Surgeries/Procedures: Reports: None HEENT Surgical History: Reports: Naso-Sinus Surgery Social & Family History - Family History Family Medical History: Noncontributory - Tobacco Use Smoking Status *Q: Never Smoker - Caffeine Use Caffeine Use: Reports: None - Recreational Drug Use Recreational Drug Use: No ED ROS GENERAL - Review of Systems Review Of Systems: ROS reveals no pertinent complaints other than HPI. ED EXAM, GENERAL - Physical Exam Exam: See Below (See dictation) Course - Vital Signs Last Recorded V/S: Last Vital Signs Temp 96.5 F 09/07/19 13:02 Pulse 56 L 09/07/19 13:02 Resp 18 09/07/19 13:02 BP 109/60 09/07/19 13:02 Pulse Ox 98 09/07/19 13:02 - Orders/Labs/Meds Orders: Active Orders 24 hr Category Date Time Status EKG 12 Lead [EKG Documentation Completion] [RC] STAT Care 09/07/19 13:15 Active Labs: Laboratory Tests 09/07/19 09/07/19 Range/Units 13:20 13:20 WBC 6.63 (4.0-11.0) K/uL RBC 4.72 (4.50-5.90) M/uL Hgb 15.0 (13.0-17.0) g/dL Hct 44.2 (38.0-50.0) % MCV 93.6 (80.0-98.0) fL MCH 31.8 (27.0-32.0) pg MCHC 33.9 (31.0-37.0) g/dL RDW Std Deviation 45.9 (28.0-62.0) fl RDW Coeff of [place] 13 (11.0-15.0) % Plt Count 170 (150-400) K/uL MPV 10.60 (7.40-12.00) fL Neut % (Auto) 53.7 (48.0-80.0) % Lymph % (Auto) 39.4 (16.0-40.0) % [place] % (Auto) 4.8 (0.0-15.0) % Eos % (Auto) 1.8 (0.0-7.0) % Baso % (Auto) 0.3 (0.0-1.5) % Neut # (Auto) 3.6 (1.4-5.7) K/uL Lymph # (Auto) 2.6 H (0.6-2.4) K/uL [place] # (Auto) 0.3 (0.0-0.8) K/uL Eos # (Auto) 0.1 (0.0-0.7) K/uL Baso # (Auto) 0.0 (0.0-0.1) K/uL Nucleated RBC % 0.0 /100WBC Nucleated RBCs # 0 K/uL Sodium 139 (136-148) mmol/L Potassium 4.0 (3.5-5.1) mmol/L Chloride 104 (98-107) mmol/L Carbon Dioxide 27.5 (21.0-32.0) mmol/L BUN 20 H (7.0-18.0) mg/dL Creatinine 1.1 (0.8-1.3) mg/dL Est Cr Clr Drug Dosing 97.30 mL/min Estimated GFR (MDRD) > 60.0 ml/min Glucose 121 H (74-106) mg/dL Calcium 8.4 L (8.5-10.1) mg/dL Total Bilirubin 0.4 (0.2-1.0) mg/dL AST 17 (15-37) IU/L ALT 19 (14-63) IU/L Alkaline Phosphatase 65 (46-116) U/L Total Protein 7.2 (6.4-8.2) g/dL Albumin 4.0 (3.4-5.0) g/dL Globulin 3.2 (2.6-4.0) g/dL Albumin/Globulin Ratio 1.3 (0.9-1.6) Meds: Medications Discontinued Medications Generic Name Dose Route Start Last Admin Trade Name Freq PRN Reason Stop Dose Admin Diphenhydramine HCl 50 mg 09/07/19 13:09 09/07/19 13:35 Benadryl IVPUSH 09/07/19 13:10 50 mg ONETIME ONE Administration Sodium Chloride 1,000 mls @ 999 mls/hr 09/07/19 13:09 09/07/19 13:31 Normal Saline IV 09/07/19 14:09 999 mls/hr STAT ONE Administration Ketorolac Tromethamine 30 mg 09/07/19 13:09 09/07/19 13:34 Toradol IVPUSH 09/07/19 13:10 30 mg ONETIME ONE Administration Metoclopramide HCl 10 mg 09/07/19 13:09 09/07/19 13:36 Reglan IV 09/07/19 13:10 10 mg ONETIME ONE Administration Ondansetron HCl 4 mg 09/07/19 13:09 09/07/19 13:33 Zofran IVPUSH 09/07/19 13:10 4 mg ONETIME ONE Administration Departure - Departure Time of Disposition: 14:37 Disposition: Home, Self-Care 01 Clinical Impression: Headache Qualifiers: Headache type: unspecified Headache chronicity pattern: acute headache Intractability: not intractable Qualified Code(s): R51 - Headache - Discharge Information Instructions: Migraine Headache, [id number] Referrals: Peter Birch MD [Primary Care Provider] - Forms: ED Department Discharge Additional Instructions: The following information is given to patients seen in the emergency department who are being discharged to home. This information is to outline your options for follow-up care. We provide all patients seen in our emergency department with a follow-up referral. The need for follow-up, as well as the timing and circumstances, are variable depending upon the specifics of your emergency department visit. If you don't have a primary care physician on staff, we will provide you with a referral. We always advise you to contact your personal physician following an emergency department visit to inform them of the circumstance of the visit and for follow-up with them and/or the need for any referrals to a consulting specialist. The emergency department will also refer you to a specialist when appropriate. This referral assures that you have the opportunity for follow-up care with a specialist. All of these measure are taken in an effort to provide you with optimal care, which includes your follow-up. Under all circumstances we always encourage you to contact your private physician who remains a resource for coordinating your care. When calling for follow-up care, please make the office aware that this follow-up is from your recent emergency room visit. If for any reason you are refused follow-up, please contact the [facility] Emergency Department at and asked to speak to the emergency department charge nurse. [facility] Primary [facility] [address] [place] [id number] [facility] [address] [place] [id number] 1. Please use Tylenol and/or Ibuprofen as needed for pain and fever management. 2. Get plenty of Rest. Encourage fluids to prevent dehydration. 3. Please follow up with your primary care provider. Return to the ED as needed as discussed. - My Orders Last 24 Hours: My Active Orders 09/07/19 13:15 EKG 12 Lead [EKG Documentation Completion] [RC] STAT - Assessment/Plan Last 24 Hours: My Active Orders 09/07/19 13:15 EKG 12 Lead [EKG Documentation Completion] [RC] STAT
--- NOTE | 2019-09-07 14:12 | CT ---
Head CT Technique: Multiple axial sections through the brain were obtained. Intravenous contrast was not utilized. Comparison: No prior intracranial imaging is available. Findings: Ventricles along with basal cisterns and sulci over the convexities appear within normal limits for the patient's age. No abnormal parenchymal densities are seen. No evidence of intracranial hemorrhage. No midline shift or mass effect is seen. Bone window settings shows small rounded soft tissue finding within the posterior right ethmoid sinus most likely representing incidental retention cyst. Mastoid sinuses are clear. No acute calvarial abnormality is seen. Impression: 1. Sinus findings which is believed to be incidental. 2. Nothing acute is appreciated on noncontrast head CT exam. Diagnostic code #2 MTDD
[2019-09-07 14:17] LABS: BLOOD UREA NITROGEN,BUN 20 mg/dL (7.0-18.0); CARBON DIOXIDE,CO2 27.5 mmol/L (21.0-32.0); CHLORIDE,CL 104 mmol/L (98-107); GLUCOSE RANDOM 121 mg/dL (74-106); SODIUM,NA 139 mmol/L (136-148)
[2019-09-07 15:04] VITALS: BP 102/66; PULSE 61
== END 2019-09-07 15:05 | disposition home or self-care (01) ==
LOC: MW.ED 12:59
DX: R51 Headache (principal); K21.9 Gastro-esophageal reflux disease without esophagitis; F32.9 Major depressive disorder, single episode, unspecified; F41.9 Anxiety disorder, unspecified; Z79.899 Other long term (current) drug therapy
CPT/HCPCS: 36415; 70450; 80053; 85025; 93005; 96361; 96374; 96375; 99284; J1200; J1885; J2405; J2765; J7040

== ENCOUNTER 2020-06-09 22:59 | Emergency (ER) | payer BC ==
--- NOTE | 2020-06-09 23:09 | EDM.PDOC ---
ED HPI GENERAL MEDICAL PROBLEM - General Time Seen by Provider: 06/09/20 23:00 Source of Information: Reports: Patient History Limitations: Reports: No Limitations - History of Present Illness INITIAL COMMENTS - FREE TEXT/NARRATIVE: 30-year-old male with history of anxiety presents with palpitation and throat tightness sensation. He takes clonazepam 1 mg orally. He said symptoms of palpitations started today and he has felt like his throat would intermittently feel tight over the last 2 weeks. He denies fever, chills, nausea, vomiting, diarrhea, chest pain, shortness of breath, abdominal pain, focal numbness or weakness. He denies drug use, alcohol use, tobacco use. ROS: A 10-point review of systems, other than pertinent positives and negatives as stated per HPI, is otherwise negative PHYSICAL EXAM General: AOx4, GCS = 15, No distress, no tremors HEENT: dry mucous membrane Neck: supple, no meningismus, no Kernig or Brudzinski Cardiac: S1S2 RRR Respiratory: CTAB, no crackles or rales, no wheezing Abdomen: Soft, nontender, no rebound or guarding, nondistended, no pulsatile mass. Back: nontender Musculoskeletal: NVI distally, no deformity Neuro: No focal deficits, CN 2 - 12 WNL. - Related Data Allergies Allergy/AdvReac Type Severity Reaction Status Date / Time No Known Allergies Allergy Verified 04/14/18 09:54 Home Meds: Home Meds Pantoprazole [ProTONIX] 40 mg PO ACBREAKFAST #30 tab.cr 01/23/17 [Rx] clonazePAM [Klonopin] 1 mg PO DAILY 01/23/17 [History] Escitalopram Oxalate 20 mg PO DAILY 09/07/19 [History] Past Medical History HEENT History: Reports: None Cardiovascular History: Reports: None Respiratory History: Reports: None Gastrointestinal History: Reports: GERD Genitourinary History: Reports: None Musculoskeletal History: Reports: None Neurological History: Reports: None Psychiatric History: Reports: Anxiety, Depression Endocrine/Metabolic History: Reports: None Hematologic History: Reports: None Immunologic History: Reports: None Oncologic (Cancer) History: Reports: None Dermatologic History: Reports: None - Infectious Disease History Infectious Disease History: Reports: None - Past Surgical History Head Surgeries/Procedures: Reports: None HEENT Surgical History: Reports: Naso-Sinus Surgery Social & Family History - Family History Family Medical History: Noncontributory - Caffeine Use Caffeine Use: Reports: None ED ROS GENERAL - Review of Systems Review Of Systems: Comprehensive ROS is negative, except as noted in HPI. ED EXAM, GENERAL - Physical Exam Exam: See Below (see dictation) EKG INTERPRETATION EKG Interpretation Comments: 90 Bpm, NSR, normal QRS interval, no STEMI. EKG and rhythm strip interpreted by me at 1104 Course - Vital Signs Last Recorded V/S: Last Vital Signs Temp 98.8 F 06/09/20 23:13 Pulse 87 06/09/20 23:13 Resp 16 06/09/20 23:13 BP 131/83 06/09/20 23:13 Pulse Ox 94 L 06/09/20 23:13 - Re-Assessments/Exams Free Text/Narrative Re-Assessment/Exam: 06/09/20 23:18 He is calm and stable for discharge, he exhibits normal vital signs and has exhibited a normal gait. I advised the patient to return to the ER for reevaluation if symptoms worsened, and to follow up with their PCP within 2-3 days. MEDICAL DECISION MAKING: I reviewed the patients past medical records, lab and radiographic findings. I discussed the case with the patient. My differential diagnosis included: Anxiety, panic attack. Patient has no complaints of chest pain or shortness of breath, I do not suspect ACS. His symptoms of throat tightness and palpitation is consistent with anxiety given the fact that he is already taking clonazepam. He is PERC negative, I do not suspect PE. Departure - Departure Time of Disposition: 23:16 Disposition: Home, Self-Care 01 Condition: Good Clinical Impression: Anxiety - Discharge Information *PRESCRIPTION DRUG MONITORING PROGRAM REVIEWED*: Not Applicable *COPY OF PRESCRIPTION DRUG MONITORING REPORT IN PATIENT ADONAY: Not Applicable Instructions: Living With Anxiety Referrals: PCP,None [Primary Care Provider] - 1 Week Additional Instructions: The following information is given to patients seen in the emergency department who are being discharged to home. This information is to outline your options for follow-up care. We provide all patients seen in our emergency department with a follow-up referral. The need for follow-up, as well as the timing and circumstances, are variable depending upon the specifics of your emergency department visit. If you don't have a primary care physician on staff, we will provide you with a referral. We always advise you to contact your personal physician following an emergency department visit to inform them of the circumstance of the visit and for follow-up with them and/or the need for any referrals to a consulting specialist. The emergency department will also refer you to a specialist when appropriate. This referral assures that you have the opportunity for follow-up care with a specialist. All of these measure are taken in an effort to provide you with optimal care, which includes your follow-up. Under all circumstances we always encourage you to contact your private physician who remains a resource for coordinating your care. When calling for follow-up care, please make the office aware that this follow-up is from your recent emergency room visit. If for any reason you are refused follow-up, please contact the [facility] Department at and asked to speak to the emergency department charge nurse. If you do not have a primary care doctor, please follow up with the clinics below within 3-[address] [facility] [address] [place] [id number] [facility] [address] [place] [id number] Sepsis Event Note (ED) - Focused Exam Vital Signs: Vital Signs Temp Pulse Resp BP Pulse Ox 06/09/20 23:13 98.8 F 87 16 131/83 94 L
[2020-06-10 03:44] VITALS: BP 121/78; PULSE 86
== END 2020-06-09 23:36 | disposition home or self-care (01) ==
LOC: MW.ED 22:59
DX: F41.9 Anxiety disorder, unspecified (principal); F32.9 Major depressive disorder, single episode, unspecified; K21.9 Gastro-esophageal reflux disease without esophagitis; Z79.899 Other long term (current) drug therapy
CPT/HCPCS: 93005; 99282; 99284-25

== ENCOUNTER 2022-01-17 16:20 | Emergency (ER) | payer SELFPAY ==
[2022-01-17] MEDS ORDERED: Sodium Chloride 0.9% 1,000 ML IV ONE (16:50)
[2022-01-17] MEDS ORDERED: Ondansetron 4 MG/2 ML SDV IVPUSH ONE (16:50)
[2022-01-17] MEDS ORDERED: Morphine 4 MG/ML VIAL IVPUSH ONE (16:51)
[2022-01-17 17:21] LABS: BLOOD UREA NITROGEN,BUN 18 mg/dL (7.0-18.0); CARBON DIOXIDE,CO2 25.2 mmol/L (21.0-32.0); CHLORIDE,CL 102 mmol/L (98-107); GLUCOSE RANDOM 114 mg/dL (74-106); LIPASE 53 U/L (73-393); SODIUM,NA 138 mmol/L (136-148)
[2022-01-17] MEDS ORDERED: Iopamidol 755 MG/ML 500 ML Multipack Bottle IVPUSH STA ×2 (17:51→18:01)
[2022-01-17 20:31] VITALS: BP 131/94; PULSE 74
== END 2022-01-17 19:10 | disposition home or self-care (01) ==
LOC: MW.ED 16:20
DX: K52.9 Noninfective gastroenteritis and colitis, unspecified (principal)
CPT/HCPCS: 36415; 74177; 80053; 81001; 83690; 85025; 87045; 87046; 87328; 87329; 87449; 87899; 96374; 96375; 99284; J2270; J2405; J7030; Q9967